=== PATIENT | male | born 1955 | race Caucasian/White ===

== ENCOUNTER 2018-04-10 05:40 | Emergency (ER) | payer BC ==
--- NOTE | 2018-04-10 06:03 | EDPHYS ---
Physician Documentation [facility] Name: Matthew Cevallos Age: 62 yrs Sex: Male : 1955 Arrival Date: 04/10/2018 Time: 05:41 Bed 5 Private MD: Geo Huerta F ED Physician Eitan Yang HPI: 04/10 05:57 This 62 yrs old Male presents to ER via Ambulatory with complaints of Sore autumn Throat, Cough, Chemical Inhalation. 05:57 The patient presents with sore throat. The patient describes throat pain as burning. autumn Onset: The symptoms/episode began/occurred 2 day(s) ago. Severity of symptoms: At their worst the symptoms were mild, in the emergency department the symptoms are unchanged. Modifying factors: The symptoms are alleviated by nothing. Associated signs and symptoms: The patient has no apparent associated signs or symptoms. The patient has not experienced similar symptoms in the past. Historical: - Allergies: 06:01 Morphine; lp1 06:01 Benadryl; lp1 06:01 Levothyronine injection; lp1 - Home Meds: 06:01 Synthroid 150 mcg Oral tab 1 tab once daily [Active]; irbesartan 150 mg oral tab 1 tab lp1 once daily [Active]; escitalopram oxalate 10 mg oral tab 1 tab once daily [Active]; levothyronine 5mcg daily [Active]; gemfibrozil 600 mg Oral tab daily [Active]; glucosamine-chondroitin oral oral daily [Active]; omeprazole 20 mg Oral cpDR 1 cap once daily [Active]; cetirizine 10 mg oral tab 1 tab once daily [Active]; Vitamin B-12 1,000 mcg Oral tab daily [Active]; - PMHx: 06:01 Hypothyroidism; lp1 - PSHx: 06:01 Thyroidectomy; Vasectomy; Knee surgery; lp1 - Immunization history:: Adult Immunizations up to date. - Social history:: Smoking status: Patient/guardian denies using tobacco, the patient reports quitting approximately 12 years ago. - Family history:: not pertinent. - Ebola Screening: : No symptoms or risks identified at this time. ROS: 06:00 Constitutional: Negative for fever, chills, and weight loss, Eyes: Negative for injury, autumn pain, redness, and discharge, ENT: Negative for injury, pain, and discharge, Neck: Negative for injury, pain, and swelling, Cardiovascular: Negative for chest pain, palpitations, and edema, Abdomen/GI: Negative for abdominal pain, nausea, vomiting, diarrhea, and constipation, Back: Negative for injury and pain, : Negative for injury, bleeding, discharge, and swelling, MS/Extremity: Negative for injury and deformity, Skin: Negative for injury, rash, and discoloration, Neuro: Negative for headache, weakness, numbness, tingling, and seizure, Psych: Negative for depression, anxiety, suicide ideation, homicidal ideation, and hallucinations, Allergy/Immunology: Negative for hives, rash, and allergies, Endocrine: Negative for neck swelling, polydipsia, polyuria, polyphagia, and marked weight changes, Hematologic/Lymphatic: Negative for swollen nodes, abnormal bleeding, and unusual bruising. 06:00 Respiratory: Positive for cough, shortness of breath, wheezing, expiratory. Exam: 06:00 Constitutional: This is a well developed, well nourished patient who is awake, alert, autumn and in no acute distress. Head/Face: Normocephalic, atraumatic. Eyes: Pupils equal round and reactive to light, extra-ocular motions intact. Lids and lashes normal. Conjunctiva and sclera are non-icteric and not injected. Cornea within normal limits. Periorbital areas with no swelling, redness, or edema. ENT: Nares patent. No nasal discharge, no septal abnormalities noted. Tympanic membranes are normal and external auditory canals are clear. Oropharynx with no redness, swelling, or masses, exudates, or evidence of obstruction, uvula midline. Mucous membranes moist. Neck: Trachea midline, no thyromegaly or masses palpated, and no cervical lymphadenopathy. Supple, full range of motion without nuchal rigidity, or vertebral point tenderness. No Meningismus. Chest/axilla: Normal chest wall appearance and motion. Nontender with no deformity. No lesions are appreciated. Cardiovascular: Regular rate and rhythm with a normal S1 and S2. No gallops, murmurs, or rubs. Normal PMI, no JVD. No pulse deficits. Abdomen/GI: Soft, non-tender, with normal bowel sounds. No distension or tympany. No guarding or rebound. No evidence of tenderness throughout. Back: No spinal tenderness. No costovertebral tenderness. Full range of motion. Male : Normal genitalia with no discharge or lesions. Skin: Warm, dry with normal turgor. Normal color with no rashes, no lesions, and no evidence of cellulitis. MS/ Extremity: Pulses equal, no cyanosis. Neurovascular intact. Full, normal range of motion. Neuro: Awake and alert, GCS 15, oriented to person, place, time, and situation. Cranial nerves II-XII grossly intact. Motor strength 5/5 in all extremities. Sensory grossly intact. Cerebellar exam normal. Normal gait. Psych: Awake, alert, with orientation to person, place and time. Behavior, mood, and affect are within normal limits. 06:00 Respiratory: the patient does not display signs of respiratory distress, Respirations: normal, Breath sounds: decreased breath sounds, rhonchi, wheezing: expiratory Vital Signs: 06:01 BP 126 / 89; Pulse 101; Resp 18; Temp 99.2(O); Pulse Ox 96% on R/A; Weight 120.2 kg; lp1 Height 5 ft. 10 in. (177.80 cm); Pain 4/10; 06:01 Body Mass Index 38.02 (120.20 kg, 177.80 cm) lp1 MDM: 05:43 Patient medically screened. [facility] 06:01 Data reviewed: vital signs, nurses notes, radiologic studies, plain films. [facility] 04/10 05:56 Order name: Chest Single View XRAY [facility] Administered Medications: 06:05 Drug: Zithromax 500 mg Route: PO; ea 06:52 Follow up: Response: No adverse reaction ea 06:05 Drug: predniSONE 60 mg Route: PO; ea 06:53 Follow up: Response: No adverse reaction ea 06:10 Drug: Xopenex 1.25 mg Route: Inhalation; cc3 06:53 Follow up: Response: No adverse reaction ea 06:45 Drug: Rocephin (cefTRIAXone) 1 grams Route: IM; Site: right gluteus; ea 07:00 Follow up: Response: No adverse reaction Disposition: 04/10/18 06:03 Discharged to Home. Impression: Acute pharyngitis, Bronchitis, not specified as acute or chronic, Bronchitis and pneumonitis due to chemicals, gases, fumes and vapors. - Condition is Stable. - Discharge Instructions: Acute Bronchitis, Adult, How to Use an Inhaler, Pharyngitis, Metered Dose Inhaler (No Spacer Used), Pharyngitis, [id number], Sore Throat, [id number]. - Prescriptions for Cheratussin AC 10- 100 mg/5 mL Oral liquid - take 10 milliliter by ORAL route every 4 hours; 150 milliliter. Medrol (Izaiah) 4 mg Oral Tablets, Dose Pack - take 1 tablet by ORAL route as directed - follow package instructions; 1 packet. Albuterol Sulfate 90 mcg/actuation - inhale 1-2 puff by INHALATION route every 4-6 hours; 1 Inhaler. Zithromax 500 mg Oral Tablet - take 1 tablet by ORAL route once daily for 5 days; 5 tablet. - Medication Reconciliation Form, Thank You Letter, Antibiotic Education, Prescription Opioid Use form. - Follow up: Geo Huerta MD; When: 2 - 3 days; Reason: Recheck today's complaints, Continuance of care, Re-evaluation by your physician. - Problem is new. - Symptoms have improved. Signatures: Dispatcher [employer] EDMO Eitan Yang MD MD cha Pena, Laura, RN RN lp1 Darcy Weiner RN RN ea Deirdre Vidal cc3 Corrections: (The following items were deleted from the chart) 07:02 06:03 04/10/2018 06:03 Discharged to Home. Impression: Acute pharyngitis; Bronchitis, ea not specified as acute or chronic; Bronchitis and pneumonitis due to chemicals, gases, fumes and vapors. Condition is Stable. Forms are Medication Reconciliation Form, Thank You Letter, Antibiotic Education, Prescription Opioid Use. Follow up: Geo Huerta; When: 2 - 3 days; Reason: Recheck today's complaints, Continuance of care, Re-evaluation by your physician. Problem is new. Symptoms have improved. autumn
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
[2018-04-10] MEDS ORDERED: predniSONE 20 MG TAB ONE (06:06)
[2018-04-10] MEDS ORDERED: AZITHROMYCIN 250 MG TAB ONE (06:08)
[2018-04-10] MEDS ORDERED: LEVALBUTEROL 1.25 MG/3 ML NEB ONE (06:14)
[2018-04-10] MEDS ORDERED: CEFTRIAXONE 1000 MG/VIAL ONE (06:37)
[2018-04-10 07:07] VITALS: BP 126/89; TEMP 99.2; O2SAT 96
--- NOTE | 2018-04-10 08:29 | RAD REPORT ---
EXAM DESCRIPTION: RAD - Chest Single View - 04/10/2018 6:16 am CLINICAL HISTORY: COUGH Chest pain. COMPARISON: CHEST SINGLE VIEW dated 10/25/2014; CHEST SINGLE VIEW dated 10/24/2014; ABDOMEN 1 VIEW KUB d ated 02/17/2014; CHEST SINGLE VIEW dated 02/10/2014 FINDINGS: Portable technique limits examination quality. The lungs are grossly clear. The heart is normal in size. No displaced fractures. IMPRESSION: No acute intrathoracic process suspected.
== END 2018-04-10 07:02 | disposition home or self-care (01) ==
LOC: ER 05:40
DX: J40 Bronchitis, not specified as acute or chronic (principal); J68.0 Bronchitis and pneumonitis due to chemicals, gases, fumes and vapors; Z88.5 Allergy status to narcotic agent; Z88.8 Allergy status to other drugs, medicaments and biological substances
CPT/HCPCS: 71045; 96372; 99284; J7512

== ENCOUNTER 2018-07-20 09:22 | Emergency (ER) | payer BC ==
[2018-07-20] MEDS ORDERED: ONDANSETRON 4 MG/2 ML VIAL ONE (09:46)
[2018-07-20] MEDS ORDERED: NA CHLORIDE 0.9% 1,000 ML ONE ×2 (09:46→12:44)
[2018-07-20] MEDS ORDERED: MEPERIDINE HCL 50 MG/ML AMP ONE ×2 (09:46→10:53)
[2018-07-20 09:50] LABS: Absolute Lymphocytes (CBC) 3.7 K/uL (0.7-4.9); Absolute Monocytes 1.4 K/uL (0.1-1.3); Absolute Neutrophil 9.2 K/uL (1.8-8.0); Eosinophils % 1.1 % (0-4.4); Hematocrit 48.7 % (39.6-49.0); Lymphocytes % 25.2 % (15.3-44.8); MPV 8.8 fL (7.6-11.3); Monocytes % 9.8 % (3.3-12.3)
[2018-07-20 10:01] LABS: Bilirubin Direct 0.2 mg/dL (0-0.2); Bilirubin Total 0.7 mg/dL (0.2-1.0); Potassium 3.5 mmol/L (3.5-5.1); Protein, Total 8.3 g/dL (6.4-8.2)
[2018-07-20 11:21] LABS: Urine Blood 3+ (NEG); Urine Glucose NEGATIVE (NEG); Urine Protein 2+ (NEG); Urine Specific Gravity >1.030 (1.005-1.030); Urine pH 5.5 (5.0-7.0)
--- NOTE | 2018-07-20 12:23 | RAD REPORT ---
EXAM DESCRIPTION: CTAbdomen Pelvis W Contrast - 07/20/2018 12:14 pm CLINICAL HISTORY: Abdominal pain. left abd and flank pain;Abd pain COMPARISON: CT ABD PELVIS W CONTRAST dated 10/14/2013; CT ABD PELVIS W CONTRAST dated 05/04/2013 TECHNIQUE: Biphasic CT imaging of the abdomen and pelvis was performed with 100 ml non-ionic IV cont rast. All CT scans are performed using dose optimization technique as appropriate and may include automated exposure control or mA/KV adjustment according to patient size. FINDINGS: The lung bases are clear. Diffuse fatty liver is present. The spleen, pancreas, adrenal glands and right kidney are normal. 6 m m stone is seen in the proximal left ureter at the level of L4-5 (670 HU). Mild left hydronephrosis. Multiple additional left-sided caliceal stones are present. No bowel obstruction, free air, free fluid or abscess. The appendix is normal. No evidence of signi ficant lymphadenopathy. No suspicious bony findings. Bilateral fat containing inguinal hernias. IMPRESSION: 6 mm stone proximal left ureter resulting in mild left hydronephrosis. Additional small caliceal left-sided calculi.
[2018-07-20] MEDS ORDERED: TAMSULOSIN 0.4 MG SR CAP ONE (12:39)
[2018-07-20] MEDS ORDERED: MAGNESIUM SULFATE 1 gm IVPB 1 GM/100 ML BAG IV ONE (12:44)
[2018-07-20] MEDS ORDERED: KETOROLAC 30 MG/ML INJ ONE (13:49)
--- NOTE | 2018-07-20 14:19 | ER ---
Nurse's Notes [facility] Name: Matthew Cevallos Age: 63 yrs Sex: Male : 1955 Arrival Date: 07/20/2018 Time: 09:24 Bed 18 Private MD: Diagnosis: Ureterolithiasis Presentation: 07/20 09:31 Presenting complaint: Patient states: about 7 am the pain hit me, its in my left lower tw2 back and radiates to the left lower abdomen, nauseous. Transition of care: patient was not received from another setting of care. Onset of symptoms was July 20, 2018. Risk Assessment: Do you want to hurt yourself or someone else? Patient reports no desire to harm self or others. Initial Sepsis Screen: Does the patient meet any 2 criteria? No. Patient's initial sepsis screen is negative. Does the patient have a suspected source of infection? No. Patient's initial sepsis screen is negative. Care prior to arrival: None. 09:31 Method Of Arrival: Wheelchair tw 09:31 Acuity: ANAIS 3 tw2 Historical: - Allergies: 09:44 Benadryl; tw2 09:44 Levothyronine injection; tw2 09:44 Morphine; tw2 - Home Meds: 09:44 cetirizine 10 mg Oral tab 1 tab once daily [Active]; gemfibrozil 600 mg Oral tab daily tw2 [Active]; escitalopram oxalate 10 mg Oral tab 1 tab once daily [Active]; glucosamine-chondroitin Oral daily [Active]; irbesartan 150 mg Oral tab 1 tab once daily [Active]; levothyronine 5mcg daily [Active]; omeprazole 20 mg Oral cpDR 1 cap once daily [Active]; Synthroid 150 mcg Oral tab 1 tab once daily [Active]; Vitamin B-12 1,000 mcg Oral tab daily [Active]; - PMHx: 09:44 Hypothyroidism; tw2 - PSHx: 09:44 Thyroidectomy; Vasectomy; Knee surgery; tw2 - Immunization history:: Adult Immunizations. - Social history:: Smoking status: . - Ebola Screening: : Patient denies travel to an Ebola-affected area in the 21 days before illness onset. - Family history:: not pertinent. - Hospitalizations: : No recent hospitalization is reported. Screenin:44 Abuse screen: Denies threats or abuse. Nutritional screening: No deficits noted. tw2 Tuberculosis screening: No symptoms or risk factors identified. Fall Risk None identified. Assessment: 09:44 General: Appears uncomfortable, Behavior is cooperative, appropriate for age. Pain: tw2 Complains of pain in left low back Pain radiates to left lower quadrant. Neuro: Level of Consciousness is awake, alert, obeys commands, Oriented to person, place, time, situation. Cardiovascular: Heart tones S1 S2 Capillary refill < 3 seconds Patient's skin is warm and dry. Respiratory: Airway is patent Respiratory effort is even, unlabored, Respiratory pattern is regular, symmetrical, Breath sounds are clear bilaterally. GI: Abdomen is round non-distended, Bowel sounds present X 4 quads. Abd is soft and non tender X 4 quads. : No signs and/or symptoms were reported regarding the genitourinary system. EENT: No signs and/or symptoms were reported regarding the EENT system. Derm: No signs and/or symptoms reported regarding the dermatologic system. Musculoskeletal: Range of motion: intact in all extremities. 10:49 Reassessment: Patient appears in no apparent distress at this time. No changes from la1 previously documented assessment. Patient and/or family updated on plan of care and expected duration. Pain level reassessed. Patient is alert, oriented x 3, equal unlabored respirations, skin warm/dry/pink. 11:48 Reassessment: Patient appears in no apparent distress at this time. No changes from la1 previously documented assessment. Patient and/or family updated on plan of care and expected duration. Pain level reassessed. Patient is alert, oriented x 3, equal unlabored respirations, skin warm/dry/pink. Vital Signs: 09:32 BP 145 / 84; Pulse 66; Resp 19; Temp 98.1(O); Pulse Ox 100% on R/A; Pain 10/10; tw2 10:30 BP 138 / 84; Pulse 61; Resp 18; Pulse Ox 100% on R/A; dh3 11:48 BP 122 / 74; Pulse 81; Resp 16; Pulse Ox 98% on R/A; la1 13:33 BP 139 / 88; Pulse 89; Resp 18; Pulse Ox 98% on R/A; la1 ED Course: 09:24 Patient arrived in ED. tw3 09:26 Bed in low position. Call light in reach. Adult w/ patient. Pulse ox on. NIBP on. tw2 09:27 Evin Moreno MD is Attending Physician. rn 09:31 Jyoti Rico RN is Primary Nurse. tw2 09:32 Triage completed. tw2 09:32 Arm band placed on. tw2 09:39 Initial lab(s) drawn, by me, sent to lab. Inserted saline lock: 18 gauge in right dh3 antecubital area, using aseptic technique. Blood collected. 09:46 Report given to TIFFANIE Mae. tw2 10:29 Urine collected: clean catch specimen, daksha colored. dh3 12:14 CT Abd/Pelvis - W/Contrast In Process Unspecified. EDMS 14:30 No provider procedures requiring assistance completed. IV discontinued, intact, la1 bleeding controlled, No redness/swelling at site. Pressure dressing applied. Administered Medications: 09:42 Drug: Zofran 4 mg Route: IVP; Site: right antecubital; tw2 10:49 Follow up: Response: No adverse reaction la1 09:44 Drug: Demerol 50 mg Route: IVP; Site: right antecubital; tw2 10:49 Follow up: Response: No adverse reaction; Pain is decreased la1 09:46 Drug: NS 0.9% 1000 ml Route: IV; Rate: 1000 ml; Site: right antecubital; tw2 10:49 Follow up: IV Status: Completed infusion la1 10:49 Drug: Demerol 50 mg Route: IVP; Site: right antecubital; la1 12:01 Follow up: Response: No adverse reaction; Pain is decreased la1 12:40 Drug: Flomax 0.4 mg Route: PO; la1 13:14 Follow up: Response: No adverse reaction la1 13:01 Drug: Magnesium Sulfate 1 grams Route: IVPB; Infused Over: 1 hrs; Site: right la1 antecubital; 13:01 Drug: NS 0.9% 1000 ml Route: IV; Rate: 1 bolus; Site: right antecubital; la1 13:14 Follow up: IV Status: Completed infusion la1 13:43 Drug: TORadol 30 mg Route: IVP; Site: right antecubital; la1 13:57 Follow up: Response: No adverse reaction; Pain is decreased la1 14:30 Follow up: Response: No adverse reaction; Pain is decreased la1 Outcome: 14:18 Discharge ordered by MD. lord 14:30 Patient left the ED. la1 Signatures: Dispatcher [employer] EDMS Evin Moreno MD MD rn Attema, Lee, RN RN la1 Jyoti Rico RN RN tw2 Zarina Lawson tw3 Tigist Burdick 3
--- NOTE | 2018-07-20 14:19 | EDPHYS ---
Physician Documentation [facility] Name: Matthew Cevallos Age: 63 yrs Sex: Male : 1955 Arrival Date: 07/20/2018 Time: 09:24 Bed 18 Private MD: ED Physician Evin Moreno HPI: 07/20 10:17 This 63 yrs old Male presents to ER via Wheelchair with complaints of rn Abdominal Pain. 10:17 The patient presents with abdominal pain. Onset: The symptoms/episode began/occurred rn this morning. The symptoms do not radiate. Associated signs and symptoms: Pertinent positives: nausea and vomiting, Pertinent negatives: blood in stools, diarrhea, dysuria, fever, testicular pain. Modifying factors: The symptoms are alleviated by nothing, the symptoms are aggravated by nothing. Severity of pain: At its worst the pain was moderate in the emergency department the pain is unchanged. The patient has experienced similar episodes in the past. REports left sided abd pain, intermittent, hx of diverticulitis and kidney stones, reports feels more like kidney stone. + nausea and vomiting, woke him up this morning. . Historical: - Allergies: 09:44 Benadryl; tw2 09:44 Levothyronine injection; tw2 09:44 Morphine; tw2 - Home Meds: 09:44 cetirizine 10 mg Oral tab 1 tab once daily [Active]; gemfibrozil 600 mg Oral tab daily tw2 [Active]; escitalopram oxalate 10 mg Oral tab 1 tab once daily [Active]; glucosamine-chondroitin Oral daily [Active]; irbesartan 150 mg Oral tab 1 tab once daily [Active]; levothyronine 5mcg daily [Active]; omeprazole 20 mg Oral cpDR 1 cap once daily [Active]; Synthroid 150 mcg Oral tab 1 tab once daily [Active]; Vitamin B-12 1,000 mcg Oral tab daily [Active]; - PMHx: 09:44 Hypothyroidism; tw2 - PSHx: 09:44 Thyroidectomy; Vasectomy; Knee surgery; tw2 - Immunization history:: Adult Immunizations. - Social history:: Smoking status: . - Ebola Screening: : Patient denies travel to an Ebola-affected area in the 21 days before illness onset. - Family history:: not pertinent. - Hospitalizations: : No recent hospitalization is reported. ROS: 10:17 Constitutional: Negative for fever, chills, and weight loss, Eyes: Negative for injury, rn pain, redness, and discharge, Neck: Negative for injury, pain, and swelling, Cardiovascular: Negative for chest pain, palpitations, and edema, Respiratory: Negative for shortness of breath, cough, wheezing, and pleuritic chest pain, Abdomen/GI: + abd pain and nausea/vomiting Back: Negative for injury and pain, MS/Extremity: Negative for injury and deformity, Skin: Negative for injury, rash, and discoloration, Neuro: Negative for headache, weakness, numbness, tingling, and seizure. Exam: 10:17 Constitutional: This is a well developed, well nourished patient who is awake, alert, rn appears uncomfortable, holding left side Head/Face: Normocephalic, atraumatic. ENT: MMM Cardiovascular: Regular rate and rhythm, No pulse deficits. Respiratory: Lungs have equal breath sounds bilaterally, clear to auscultation Abdomen/GI: soft, + mild left sided abd tenderness, no rebound MS/ Extremity: Pulses equal, no cyanosis. Neurovascular intact. Full, normal range of motion. Equal circumference. Neuro: Awake and alert, GCS 15, oriented to person, place, time, and situation. Motor strength 5/5 in all extremities. Sensory grossly intact. Cerebellar exam normal. Vital Signs: 09:32 BP 145 / 84; Pulse 66; Resp 19; Temp 98.1(O); Pulse Ox 100% on R/A; Pain 10/10; tw2 10:30 BP 138 / 84; Pulse 61; Resp 18; Pulse Ox 100% on R/A; dh3 11:48 BP 122 / 74; Pulse 81; Resp 16; Pulse Ox 98% on R/A; la1 13:33 BP 139 / 88; Pulse 89; Resp 18; Pulse Ox 98% on R/A; la1 MDM: 09:27 Patient medically screened. rn 14:11 Differential diagnosis: diverticulitis, Ureterolithiasis. Data reviewed: vital signs, rn nurses notes, lab test result(s), radiologic studies, CT scan, and as a result, I will discharge patient. Counseling: I had a detailed discussion with the patient and/or guardian regarding: the historical points, exam findings, and any diagnostic results supporting the discharge/admit diagnosis, lab results, radiology results, the need for outpatient follow up, to return to the emergency department if symptoms worsen or persist or if there are any questions or concerns that arise at home. Response to treatment: the patient's symptoms have markedly improved after treatment, and as a result, I will discharge patient. Special discussion: I discussed with the patient/guardian in detail that at this point there is no indication for admission to the hospital. It is understood, however, that if the symptoms persist or worsen the patient needs to return immediately for re-evaluation. Based on the history and exam findings, there is no indication for further emergent testing or inpatient evaluation. I discussed with the patient/guardian the need to see the urologist for further evaluation of the symptoms. ED course: Pt now reports pain resolved, after discussion of management of kidney stones, patient states thinks can pass at home, has done so before, sees Dr. Tovar if doesn't pass, and return precautions given. . 07/20 09:35 Order name: Basic Metabolic Panel; Complete Time: 10:25 rn 07/20 09:35 Order name: CBC with Diff; Complete Time: 10: rn 07/20 09:35 Order name: Hepatic Function; Complete Time: 10: rn 07/20 09:35 Order name: Lipase; Complete Time: 10: rn 07/20 09:35 Order name: CT Abd/Pelvis - W/Contrast; Complete Time: 12:25 rn 07/20 10:30 Order name: Urine Dipstick--Ancillary (enter results); Complete Time: 12:25 bd 07/20 09:35 Order name: IV Saline Lock; Complete Time: : rn 07/20 09:35 Order name: Labs collected and sent; Complete Time: : rn 07/20 09:35 Order name: Urine Dipstick-Ancillary (obtain specimen); Complete Time: 10:40 rn Administered Medications: 09:42 Drug: Zofran 4 mg Route: IVP; Site: right antecubital; tw2 10:49 Follow up: Response: No adverse reaction la1 09:44 Drug: Demerol 50 mg Route: IVP; Site: right antecubital; tw2 10:49 Follow up: Response: No adverse reaction; Pain is decreased la1 09:46 Drug: NS 0.9% 1000 ml Route: IV; Rate: 1000 ml; Site: right antecubital; tw2 10:49 Follow up: IV Status: Completed infusion la1 10:49 Drug: Demerol 50 mg Route: IVP; Site: right antecubital; la1 12:01 Follow up: Response: No adverse reaction; Pain is decreased la1 12:40 Drug: Flomax 0.4 mg Route: PO; la1 13:14 Follow up: Response: No adverse reaction la1 13:01 Drug: Magnesium Sulfate 1 grams Route: IVPB; Infused Over: 1 hrs; Site: right la1 antecubital; 13:01 Drug: NS 0.9% 1000 ml Route: IV; Rate: 1 bolus; Site: right antecubital; la1 13:14 Follow up: IV Status: Completed infusion la1 13:43 Drug: TORadol 30 mg Route: IVP; Site: right antecubital; la1 13:57 Follow up: Response: No adverse reaction; Pain is decreased la1 14:30 Follow up: Response: No adverse reaction; Pain is decreased la1 Disposition: 07/20/18 14:18 Discharged to Home. Impression: Ureterolithiasis. - Condition is Stable. - Discharge Instructions: Kidney Stones. - Prescriptions for Zofran ODT 4 mg Oral tablet,disintegrating - place 1 tablet by TRANSLINGUAL route every 8 hours As needed; 20 tablet. Ibuprofen 800 mg Oral Tablet - take 1 tablet by ORAL route every 12 hours As needed take with food; 20 tablet. Tylenol- Codeine #3 300-30 mg Oral Tablet - take 2 tablets by ORAL route every 6 hours As needed; 20 tablet. Flomax 0.4 mg Oral Capsule, Sust. Release 24 hr - take 1 capsule by ORAL route once daily 1/2 hour following the same meal each day; 5 capsule. - Medication Reconciliation Form, Thank You Letter, Antibiotic Education, Prescription Opioid Use form. - Follow up: Private Physician; When: As needed; Reason: Recheck today's complaints, Re-evaluation by your physician. - Problem is new. - Symptoms have improved. Signatures: Dispatcher [employer] EDMS Evin Moreno MD MD rn Attema, Lee, RN RN la1 Jyoti Rico RN RN tw2 Corrections: (The following items were deleted from the chart) 14:30 14:18 07/20/2018 14:18 Discharged to Home. Impression: Ureterolithiasis. Condition is la1 Stable. Forms are Medication Reconciliation Form, Thank You Letter, Antibiotic Education, Prescription Opioid Use. Follow up: Private Physician; When: As needed; Reason: Recheck today's complaints, Re-evaluation by your physician. Problem is new. Symptoms have improved. rn
[2018-07-20 14:54] VITALS: TEMP 98.1
[2018-07-20 14:56] VITALS: O2SAT 98
[2018-07-20 14:57] VITALS: BP 139/88
== END 2018-07-20 14:30 | disposition home or self-care (01) ==
LOC: ER 09:22
DX: N20.1 Calculus of ureter (principal); E03.9 Hypothyroidism, unspecified; Z88.5 Allergy status to narcotic agent; Z88.8 Allergy status to other drugs, medicaments and biological substances
CPT/HCPCS: 36415; 74177; 80048; 80076; 81003; 83690; 85025; 96361; 96374; 96375; 99284; J2175; J2405; J3475; J7030; Q9967

== ENCOUNTER 2018-12-16 09:22 | Emergency (ER) | payer BC ==
[2018-12-16 10:39] LABS: Absolute Lymphocytes (CBC) 0.9 K/uL (0.7-4.9); Absolute Monocytes 0.6 K/uL (0.1-1.3); Absolute Neutrophil 2.7 K/uL (1.8-8.0); Basophils % 1.5 % (0-1.3); Eosinophils % 4.3 % (0-4.4); Hematocrit 45.7 % (39.6-49.0); MPV 8.8 fL (7.6-11.3); Monocytes % 14.3 % (3.3-12.3); RBC Red Blood Cell Count 4.68 M/uL (4.33-5.43)
[2018-12-16 10:51] LABS: Protime INR 1.08
[2018-12-16 11:09] LABS: ALT/SGPT 65 U/L (12-78); AST/SGOT 46 U/L (15-37); Albumin 3.9 g/dL (3.4-5.0); Alkaline Phosphatase 84 U/L (45-117); BUN Blood Urea Nitrogen 11 mg/dL (7-18); Bicarbonate 26 mmol/L (21-32); Bilirubin Direct 0.2 mg/dL (0-0.2); Bilirubin Total 0.8 mg/dL (0.2-1.0); Glucose Level 119 mg/dL (74-106); Magnesium 2.1 mg/dL (1.8-2.4); Potassium 4.3 mmol/L (3.5-5.1); Protein, Total 8.1 g/dL (6.4-8.2); Sodium Level 138 mmol/L (136-145); Troponin (Emerg Dept Use Only) < 0.02 ng/mL (0.0-0.045)
--- NOTE | 2018-12-16 11:23 | RAD REPORT ---
EXAM DESCRIPTION: US - Extrem Venous W Compress Derrick - 12/16/2018 11:09 am CLINICAL HISTORY: Leg pain and swelling COMPARISON: None. TECHNIQUE: Real-time sonographic evaluation of the bilateral lower extremity common femoral, superfi cial femoral, popliteal and posterior tibial veins was performed. FINDINGS: Normal compressibility, flow augmentation, phasic flow and spontaneous flow are identified in the left and right lower extremity common femoral, superficial femoral, popliteal and posterior t ibial veins. No intraluminal filling defects seen. IMPRESSION: No DVT in either lower extremity.
--- NOTE | 2018-12-16 11:56 | RAD REPORT ---
EXAM DESCRIPTION: RAD - Chest Single View - 12/16/2018 11:46 am CLINICAL HISTORY: SOB Chest pain. COMPARISON: Abdomen 1 View (KUB) dated 08/04/2018; Chest Pa And Lat (2 Views) dated 08/04/2018; Abdome n 1 View (KUB) dated 07/31/2018; Chest Single View dated 04/10/2018 FINDINGS: Portable technique limits examination quality. The lungs are grossly clear. The heart is normal in size. No displaced fractures. IMPRESSION: No acute intrathoracic process suspected.
--- NOTE | 2018-12-16 11:58 | RAD REPORT ---
EXAM DESCRIPTION: RAD - Knee Left 3 View - 12/16/2018 11:46 am CLINICAL HISTORY: PAIN COMPARISON: No comparisons FINDINGS: Depression of the medial tibial plateau is noted, age undetermined. A small suprapatellar joint effusion is present. If the patient has had acute trauma, further assessment of the medial knee with MR imaging would be advised.
[2018-12-16] MEDS ORDERED: ACETAMINOPHEN 500 MG TAB ONE (12:07)
--- NOTE | 2018-12-16 12:28 | ER ---
Nurse's Notes [facility] Name: Matthew Cevallos Age: 63 yrs Sex: Male : 1955 Arrival Date: 12/16/2018 Time: 09:24 Bed 18 Private MD: Geo Huerta F Diagnosis: Pain in left leg;Pain in right leg;Localized edema-dependent edema;Headache;Pain in left knee Presentation: 12/16 09:30 Initial Sepsis Screen: Does the patient meet any 2 criteria? No. Patient's initial rb1 sepsis screen is negative. Does the patient have a suspected source of infection? No. Patient's initial sepsis screen is negative. 09:32 Presenting complaint: Bilateral leg pain and headache x 3 days. Pain began behind left hb knee, travelled up to groin, then back down to both calves. Transition of care: patient was not received from another setting of care. Onset of symptoms was December 13, 2018. Risk Assessment: Do you want to hurt yourself or someone else? Patient reports no desire to harm self or others. Care prior to arrival: None. 09:32 Method Of Arrival: Ambulatory hb 09:32 Acuity: ANAIS 3 hb Triage Assessment: 09:30 Headache History: The patient has had previous headaches and this one is similar to rb1 previous episodes. Historical: - Allergies: 09:34 Benadryl; hb 09:34 Levothyronine injection; hb 09:34 Morphine; hb - Home Meds: 09:34 cetirizine 10 mg Oral tab 1 tab once daily [Active]; escitalopram oxalate 10 mg Oral hb tab 1 tab once daily [Active]; gemfibrozil 600 mg Oral tab daily [Active]; glucosamine-chondroitin Oral daily [Active]; irbesartan 150 mg Oral tab 1 tab once daily [Active]; levothyronine 5mcg daily [Active]; Synthroid 150 mcg Oral tab 1 tab once daily [Active]; omeprazole 20 mg Oral cpDR 1 cap once daily [Active]; Vitamin B-12 1,000 mcg Oral tab daily [Active]; - PMHx: 09:34 Hypothyroidism; Hypertension; hb - PSHx: 09:34 Thyroidectomy; Vasectomy; Knee surgery; hb - Immunization history:: Adult Immunizations up to date. - Social history:: Smoking status: Patient/guardian denies using tobacco. - Ebola Screening: : No symptoms or risks identified at this time. Screenin:30 Abuse screen: Denies threats or abuse. Nutritional screening: No deficits noted. rb1 Tuberculosis screening: No symptoms or risk factors identified. Fall Risk None identified. Assessment: 09:30 General: Appears in no apparent distress. comfortable, Behavior is calm, cooperative, rb1 Denies fever. Pain: Complains of pain in bilateral legs Pain currently is 7 out of 10 on a pain scale. Pain began Saturday Aggravated by weight bearing. Neuro: Level of Consciousness is awake, alert, obeys commands, Oriented to person, place, time, situation, Reports headache frontal area, Burning sensation in bilateral feet when wearing socks.. Cardiovascular: Capillary refill < 3 seconds is brisk in bilateral toes. Respiratory: Airway is patent Respiratory effort is even, unlabored, Respiratory pattern is regular, symmetrical. GI: No signs and/or symptoms were reported involving the gastrointestinal system. : No signs and/or symptoms were reported regarding the genitourinary system. Derm: Skin is red, Noted to the medial left thigh. Musculoskeletal: Range of motion: intact in all extremities. 10:25 Reassessment: Patient appears in no apparent distress at this time. No changes from rb1 previously documented assessment. at bedside. 11:14 Reassessment: X-ray at bedside. rb1 11:22 Reassessment: Patient appears in no apparent distress at this time. Patient and/or rb1 family updated on plan of care and expected duration. Pain level reassessed. Patient is alert, oriented x 3, equal unlabored respirations, skin warm/dry/pink. 12:21 Reassessment: Patient appears in no apparent distress at this time. No changes from rb1 previously documented assessment. 13:20 Reassessment: Patient appears in no apparent distress at this time. Patient and/or rb1 family updated on plan of care and expected duration. Pain level reassessed. Patient is alert, oriented x 3, equal unlabored respirations, skin warm/dry/pink. Vital Signs: 09:33 BP 155 / 87; Pulse 90; Resp 18; Temp 97.8; Pulse Ox 97% on R/A; Weight 108.86 kg; hb Height 5 ft. 10 in. (177.80 cm); Pain 6/10; 10:27 BP 134 / 87; Pulse 68; Resp 18; Temp 98.4(O); Pulse Ox 100% ; mh5 11:37 BP 136 / 92; Pulse 66; Resp 17; Temp 98.0(O); Pulse Ox 100% ; mh5 12:26 BP 142 / 94; Pulse 65; Resp 17; Temp 97.8(O); Pulse Ox 99% ; mh5 13:24 BP 123 / 73; Pulse 78; Resp 22; Temp 98.0(O); Pulse Ox 95% on R/A; Pain 4/10; rb1 09:33 Body Mass Index 34.44 (108.86 kg, 177.80 cm) hb 13:24 Pt. was sleeping when I went into the room rb1 ED Course: 09:24 Patient arrived in ED. dl4 09:24 Geo Huerta MD is Private Physician. dl4 09:30 Patient has correct armband on for positive identification. Placed in gown. Bed in low rb1 position. Call light in reach. Side rails up X 1. nurse monitoring on. Pulse ox on. NIBP on. Warm blanket given. 09:33 Triage completed. hb 09:33 Arm band placed on. hb 09:35 Nathaniel Nielsen NP is PHCP. pm1 09:35 Eitan Yang MD is Attending Physician. pm1 09:50 Lore Wong, TIFFANIE is Primary Nurse. rb1 10:28 EKG done, by agricultural technical officer. reviewed by Nathaniel Nielsen NP. sm3 10:28 Inserted saline lock: 22 gauge in right antecubital area, using aseptic technique. rb1 Blood collected. 11:11 Extrem Venous W Compression Derrick US In Process Unspecified. EDMS 11:47 Knee Left 3 View XRAY In Process Unspecified. EDMS 11:47 XRAY Chest (1 view) In Process Unspecified. EDMS 13:30 No provider procedures requiring assistance completed. IV discontinued, intact, rb1 bleeding controlled, No redness/swelling at site. Pressure dressing applied. Administered Medications: 11:54 Drug: Tylenol 1000 mg Route: PO; rb1 12:33 Follow up: Response: No adverse reaction; Pain is decreased rb1 Outcome: 12:27 Discharge ordered by MD. pm1 13:30 Patient left the ED. rb1 13:30 Discharged to home ambulatory, with family. rb1 13:30 Condition: stable 13:30 Discharge instructions given to patient, Instructed on discharge instructions, follow up and referral plans. Demonstrated understanding of instructions, follow-up care, Prescriptions given X none Signatures: Dispatcher [employer] EDLore Alejandra RN RN rb1 Nathaniel Nielsen, REPORT ANALYST REPORT ANALYST pm1 Macrina Villanueva RN RN Monika Boothe 5 Sammie Velasquez sm3 Tony Odom dl4 Corrections: (The following items were deleted from the chart) 13:51 13:50 Patient left the ED. rb1 rb1
--- NOTE | 2018-12-16 12:28 | EDPHYS ---
Physician Documentation [facility] Name: Matthew Cevallos Age: 63 yrs Sex: Male : 1955 Arrival Date: 12/16/2018 Time: 09:24 Bed 18 Private MD: Geo Huerta F ED Physician Eitan Yang HPI: 12/16 10:18 This 63 yrs old Male presents to ER via Ambulatory with complaints of pm1 Bilateral Leg Swelling, Headache. 10:18 The patient presents with pain, swelling. The complaints affect the right leg and left pm1 leg. Context: The problem was sustained at home, resulted from an unknown cause, possibly due to helping lift and move boxes on Saturday and then cleaned the pool at his home right afterwards, the patient can fully bear weight, the patient is able to ambulate, Problem is a result from a previous injury: No. Onset: The symptoms/episode began/occurred 3 day(s) ago. Modifying factors: The symptoms are alleviated by nothing. the symptoms are aggravated by nothing. Associated signs and symptoms: Pertinent positives: Left side pain greater than right. Left inner thigh pain and left upper calf pain just below popliteal area, Pertinent negatives chest pain, shortness of breath. Treatment prior to arrival includes: no previous treatment. Severity of symptoms: in the emergency department the symptoms are unchanged. The patient has not experienced similar symptoms in the past. The patient has not recently seen a physician. Historical: - Allergies: 09:34 Benadryl; hb 09:34 Levothyronine injection; hb 09:34 Morphine; hb - Home Meds: 09:34 cetirizine 10 mg Oral tab 1 tab once daily [Active]; escitalopram oxalate 10 mg Oral hb tab 1 tab once daily [Active]; gemfibrozil 600 mg Oral tab daily [Active]; glucosamine-chondroitin Oral daily [Active]; irbesartan 150 mg Oral tab 1 tab once daily [Active]; levothyronine 5mcg daily [Active]; Synthroid 150 mcg Oral tab 1 tab once daily [Active]; omeprazole 20 mg Oral cpDR 1 cap once daily [Active]; Vitamin B-12 1,000 mcg Oral tab daily [Active]; - PMHx: 09:34 Hypothyroidism; Hypertension; hb - PSHx: 09:34 Thyroidectomy; Vasectomy; Knee surgery; hb - Immunization history:: Adult Immunizations up to date. - Social history:: Smoking status: Patient/guardian denies using tobacco. - Ebola Screening: : No symptoms or risks identified at this time. ROS: 10:18 Constitutional: Negative for fever, chills, and weight loss, Eyes: Negative for injury, pm1 pain, redness, and discharge, ENT: Negative for injury, pain, and discharge, Neck: Negative for injury, pain, and swelling, Cardiovascular: Negative for chest pain, palpitations, and edema, Respiratory: Negative for shortness of breath, cough, wheezing, and pleuritic chest pain, Abdomen/GI: Negative for abdominal pain, nausea, vomiting, diarrhea, and constipation, Back: Negative for injury and pain, : Negative for injury, bleeding, discharge, and swelling. 10:18 Skin: Negative for injury, rash, and discoloration, Neuro: Negative for headache, weakness, numbness, tingling, and seizure. 10:18 MS/extremity: Positive for pain, swelling, of the left leg and right leg, Negative for decreased range of motion, deformity. Exam: 10:18 Constitutional: This is a well developed, well nourished patient who is awake, alert, pm1 and in no acute distress. Head/Face: Normocephalic, atraumatic. Eyes: Pupils equal round and reactive to light, extra-ocular motions intact. Lids and lashes normal. Conjunctiva and sclera are non-icteric and not injected. Cornea within normal limits. Periorbital areas with no swelling, redness, or edema. ENT: Nares patent. No nasal discharge, no septal abnormalities noted. Tympanic membranes are normal and external auditory canals are clear. Oropharynx with no redness, swelling, or masses, exudates, or evidence of obstruction, uvula midline. Mucous membranes moist. Neck: Trachea midline, no thyromegaly or masses palpated, and no cervical lymphadenopathy. Supple, full range of motion without nuchal rigidity, or vertebral point tenderness. No Meningismus. Chest/axilla: Normal chest wall appearance and motion. Nontender with no deformity. No lesions are appreciated. Cardiovascular: Regular rate and rhythm with a normal S1 and S2. No gallops, murmurs, or rubs. Normal PMI, no JVD. No pulse deficits. Respiratory: Lungs have equal breath sounds bilaterally, clear to auscultation and percussion. No rales, rhonchi or wheezes noted. No increased work of breathing, no retractions or nasal flaring. Abdomen/GI: Soft, non-tender, with normal bowel sounds. No distension or tympany. No guarding or rebound. No evidence of tenderness throughout. Back: No spinal tenderness. No costovertebral tenderness. Full range of motion. Skin: Warm, dry with normal turgor. Normal color with no rashes, no lesions, and no evidence of cellulitis. 10:18 Musculoskeletal/extremity: Extremities: grossly normal except: noted in the medial aspect of left thigh and proximal aspect of left calf: swelling, There is no evidence of decreased ROM, deformity. 10:18 Neuro: Orientation: is normal, Motor: is normal, moves all fours. Vital Signs: 09:33 BP 155 / 87; Pulse 90; Resp 18; Temp 97.8; Pulse Ox 97% on R/A; Weight 108.86 kg; hb Height 5 ft. 10 in. (177.80 cm); Pain 6/10; 10:27 BP 134 / 87; Pulse 68; Resp 18; Temp 98.4(O); Pulse Ox 100% ; mh5 11:37 BP 136 / 92; Pulse 66; Resp 17; Temp 98.0(O); Pulse Ox 100% ; mh5 12:26 BP 142 / 94; Pulse 65; Resp 17; Temp 97.8(O); Pulse Ox 99% ; mh5 13:24 BP 123 / 73; Pulse 78; Resp 22; Temp 98.0(O); Pulse Ox 95% on R/A; Pain 4/10; rb1 09:33 Body Mass Index 34.44 (108.86 kg, 177.80 cm) hb 13:24 Pt. was sleeping when I went into the room rb1 MDM: 09:37 Patient medically screened. pm1 12:25 Data reviewed: vital signs. Data interpreted: Pulse oximetry: on room air is 100 %. pm1 Interpretation: normal. Counseling: I had a detailed discussion with the patient and/or guardian regarding: the historical points, exam findings, and any diagnostic results supporting the discharge/admit diagnosis, lab results, radiology results, the need for outpatient follow up, to return to the emergency department if symptoms worsen or persist or if there are any questions or concerns that arise at home. 12/16 10:12 Order name: Basic Metabolic Panel; Complete Time: 11:15 pm12/16 10:12 Order name: CBC with Diff; Complete Time: 10:40 pm12/16 10:12 Order name: LFT's; Complete Time: 11:15 pm12/16 10:12 Order name: Magnesium; Complete Time: 11:15 pm12/16 10:12 Order name: PT-INR; Complete Time: 11:00 pm12/16 10:12 Order name: Troponin (emerg Dept Use Only); Complete Time: 11:15 pm12/16 10:12 Order name: Knee Left 3 View XRAY; Complete Time: 12:00 pm12/16 10:12 Order name: Extrem Venous W Compression Derrick US; Complete Time: 11:30 pm12/16 10:12 Order name: XRAY Chest (1 view); Complete Time: 11:58 pm12/16 10:12 Order name: EKG; Complete Time: 10:14 pm12/16 10:12 Order name: Cardiac monitoring; Complete Time: 10:39 pm12/16 10:12 Order name: EKG - Nurse/Tech; Complete Time: 10:29 pm12/16 10:12 Order name: IV Saline Lock; Complete Time: 10:29 pm12/16 10:12 Order name: Labs collected and sent; Complete Time: 10:30 pm12/16 10:12 Order name: O2 Per Protocol; Complete Time: 10:30 pm12/16 10:12 Order name: O2 Sat Monitoring; Complete Time: 10:30 pm EC:31 Rate is 65 beats/min. Rhythm is regular, Normal Sinus Rhythm with No ectopy. No Q pm1 waves. T waves are Normal. No ST changes noted. Clinical impression: Normal ECG. Administered Medications: 11:54 Drug: Tylenol 1000 mg Route: PO; rb1 12:33 Follow up: Response: No adverse reaction; Pain is decreased rb1 Disposition: 15:50 Co-signature as Attending Physician, Eitan Yang MD I agree with the assessment and autumn plan of care. Disposition: 12/16/18 12:27 Discharged to Home. Impression: Pain in left leg, Pain in right leg, Localized edema - dependent edema, Headache, Pain in left knee. - Condition is Stable. - Discharge Instructions: General Headache Without Cause, Musculoskeletal Pain, Knee Pain, Peripheral Edema. - Medication Reconciliation Form, Thank You Letter, Antibiotic Education, Prescription Opioid Use form. - Follow up: Emergency Department; When: As needed; Reason: Worsening of condition. Follow up: Private Physician; When: 2 - 3 days; Reason: Recheck today's complaints, Continuance of care, Re-evaluation by your physician. - Problem is new. - Symptoms have improved. Signatures: Dispatcher [employer] EDMS Eitan Yang MD MD cha Barber, Rebecca RN RN rb1 Nathaniel Nielsen NP STEAM STATION SUPERVISOR pm1 Macrina Villanueva RN RN Corrections: (The following items were deleted from the chart) 12:30 12:27 12/16/2018 12:27 Discharged to Home. Impression: Pain in left leg; Pain in right pm1 leg. Condition is Stable. Forms are Medication Reconciliation Form, Thank You Letter, Antibiotic Education, Prescription Opioid Use. Follow up: Emergency Department; When: As needed; Reason: Worsening of condition. Follow up: Private Physician; When: 2 - 3 days; Reason: Recheck today's complaints, Continuance of care, Re-evaluation by your physician. Problem is new. Symptoms have improved. pm1 12:31 12:30 12/16/2018 12:27 Discharged to Home. Impression: Pain in left leg; Pain in right pm1 leg; Localized edema - dependent edema; Headache. Condition is Stable. Discharge Instructions: Musculoskeletal Pain, Peripheral Edema. Forms are Medication Reconciliation Form, Thank You Letter, Antibiotic Education, Prescription Opioid Use. Follow up: Emergency Department; When: As needed; Reason: Worsening of condition. Follow up: Private Physician; When: 2 - 3 days; Reason: Recheck today's complaints, Continuance of care, Re-evaluation by your physician. Problem is new. Symptoms have improved. pm1 13:50 12:31 12/16/2018 12:27 Discharged to Home. Impression: Pain in left leg; Pain in right rb1 leg; Localized edema - dependent edema; Headache; Pain in left knee. Condition is Stable. Discharge Instructions: Musculoskeletal Pain, Peripheral Edema, General Headache Without Cause, Knee Pain. Forms are Medication Reconciliation Form, Thank You Letter, Antibiotic Education, Prescription Opioid Use. Follow up: Emergency Department; When: As needed; Reason: Worsening of condition. Follow up: Private Physician; When: 2 - 3 days; Reason: Recheck today's complaints, Continuance of care, Re-evaluation by your physician. Problem is new. Symptoms have improved. pm1
--- NOTE | 2018-12-16 12:39 | EKG ---
Test Date: 2018-12-16 Test Time: 10:22:01 Process Control Programmer: ROBBIE MEASUREMENT RESULTS: Intervals: Rate: 65 MI: 168 QRSD: 86 QT: 402 QTc: 418 [place]: P: 61 MI: 168 QRS: 11 T: 8 INTERPRETIVE STATEMENTS: Normal sinus rhythm Normal ECG Compared to ECG 07/31/2018 11:40:04 Sinus bradycardia no longer present Electronically Signed On 12-16-18 12:38:10 CDT by Nabor Hsieh
[2018-12-16 14:40] VITALS: BP 123/73; TEMP 98; O2SAT 95
== END 2018-12-16 13:50 | disposition home or self-care (01) ==
LOC: ER 09:22
DX: M79.605 Pain in left leg (principal); M79.604 Pain in right leg; M25.562 Pain in left knee; R60.0 Localized edema; R51 Headache; E03.9 Hypothyroidism, unspecified; I10 Essential (primary) hypertension; Z88.5 Allergy status to narcotic agent; Z88.8 Allergy status to other drugs, medicaments and biological substances
CPT/HCPCS: 36415; 71045; 80048; 80076; 83735; 84484; 85025; 85610; 93005; 93970; 99285